=== PATIENT | female | born 1970 | race Caucasian/White ===

== ENCOUNTER 2016-06-15 11:12 | Emergency (ER) | payer MEDICAID, OTHER ==
[~2016-06-15] VITALS: Ht 172.7 cm; Wt 93.0 kg
[~2016-06-15 11:12] MED LIST: PROG1CAP20 PO; VENL75 PO
[2016-06-15 11:34] VITALS: BP 143/94; PULSE 73; RESP 16; TEMP 99.5; O2SAT 98
--- NOTE | 2016-06-15 12:01 | PD ---
HPI Chief Complaint: Eye Problems/Injury Time Seen by Provider: 12:01 Travel History International Travel<30 days: No Contact w/Intl Traveler<30days: No Traveled to known affect area: No History of Present Illness HPI 44-year-old female presents to emergency Department with complaint of right eye pain and swelling since Tuesday morning. Reports her eyelid was swollen on Tuesday morning when she woke up and thought it was maybe a sty. She has tried tea bags to the right eye with no relief and worsening of symptoms. Denies any injury or trauma. No known foreign body. No one else with similar symptoms that she knows of. Has been waking up with her eye crusted shut in the mornings. Took ibuprofen yesterday with minimal relief of pain. Denies fever, chills, nausea, vomiting. Denies change in vision. Does not wear contacts or glasses. Dr. Liz is primary care provider. Allergies to penicillin. Denies significant past medical history. No other modifying factors or associated signs and symptoms. PFSH Past Medical History Asthma: No Atrial Fibrillation: No Anxiety: Yes (PANIC DISORDER ) Depression: Yes COPD: No Cerebrovascular Accident: No Coronary Artery Disease: No Diabetes: No Diminished Hearing: No Headaches: Yes Psychiatric: Yes (panic disorder) Migraines: Yes Myocardial Infarction: No Tetanus Vaccination: > 5 Years Influenza Vaccination: No ?: Not : 2 Para: 3 Tubal Ligation: Yes Past Surgical History Section: Yes (x2) Gynecologic Surgery: Yes Thoracic Surgery: Yes (BREAST AUGMENTATION) Other Surgery: Yes (breast augmentation) Social History Alcohol Use: No Tobacco Use: No Substance Use: No Allergies-Medications (Allergen,Severity, Reaction): Coded Allergies: Penicillin (Verified Allergy, Severe, RASH, 06/15/16) Reported Meds & Prescriptions Reported Meds & Active Scripts Active Ibuprofen 800 Mg Tab 800 Mg PO Q6HR PRN Polytrim Opth Drops (Polymyxin/Trimethoprim Sulfate) 10,000-0.1 Unit/Ml-% Soln 1 -2 Drop RIGHT EYE Q6HR 7 Days Reported Effexor (Venlafaxine HCl) 75 Mg Tab 75 Mg PO HS Review of Systems Except as stated in HPI: all other systems reviewed are Neg Physical Exam Narrative GENERAL: Well-nourished, well-developed female patient, in no acute distress SKIN: Warm and dry. HEAD: Atraumatic. Normocephalic. EYES: Pupils equal and round at 3 mm with brisk reaction. PERRLA. EOMI. visual acuity left 20/20, right 20/20, both 20/15.. Right lid eversion with no foreign body noted. Right eye with scleral erythema and mild lid edema. No orbital tenderness, erythema or cellulitis. Right eye without photophobia. No consensual photophobia. No scleral icterus. Clear drainage. Alfonso lamp exam reveals [-] at the [-] position. ENT: Mucosa pink and moist. Airway patent. NECK: Trachea midline. CARDIOVASCULAR: Regular rate. RESPIRATORY: No accessory muscle use. GASTROINTESTINAL: Rounded. NEUROLOGICAL: Awake and alert. Oriented 3. No obvious cranial nerve deficits. Motor grossly within normal limits. Normal speech. PSYCHIATRIC: Appropriate mood and affect; insight and judgment normal. Data Data Last Documented VS Vital Signs Date Time Temp Pulse Resp B/P Pulse Ox O2 Delivery O2 Flow Rate FiO2 06/15/16 11:56 16 06/15/16 11:34 99.5 73 143/94 98 Orders Proparacaine 0.5% Opth Soln (Alcaine 0.5 (06/15/16 12:15) MDM Medical Decision Making Medical Screen Exam Complete: Yes Emergency Medical Condition: Yes Medical Record Reviewed: Yes Differential Diagnosis Conjunctivitis, corneal abrasion, corneal ulceration, foreign body Narrative Course 45-year-old female with right eye pain, scleral erythema, and mild lid edema. Patient is afebrile denies fever, chills, nausea or vomiting. Visual acuity left 20/20, right 20/20, both 20/15; uncorrected. Patient does not wear contact lenses or glasses. No known eye injury. 1217: Alfonso lamp exam is normal. Suspecting conjunctivitis. Polytrim eyedrops and ibuprofen prescribed for home. Instructed patient to follow-up with ophthalmology as needed. Patient is medically cleared and stable for discharge. Discussed reasons to return to the emergency department. Instructed patient to follow up with primary care provider. Patient agrees with treatment plan. The patients vital signs are stable and the patient is stable for outpatient follow-up and treatment. Patient discharged home, stable and in no acute distress. Diagnosis Primary Impression: Conjunctivitis, right eye Qualified Code: H10.9 - Conjunctivitis of right eye, unspecified conjunctivitis type Referrals: Claim Review Medical Director Primary Care Physician Patient Instructions: Conjunctivitis (ED), General Instructions Additional Instructions: Conjunctivitis is contagious Use antibiotic drops as prescribed Apply warm or cool compresses to both eyes for a few minutes several times daily to minimize irritation Avoid triggers, such as allergens, that may irritate your eyes Wash your hands frequently Do not share washcloths, towels, pillows, or any other material that has touched your eyes with any other household members Follow-up with your primary care provider Follow-up with ophthalmology as needed Return to the emergency department immediately with worsening of symptoms Med/Other Pt SpecificInfo: Prescription(s) given Scripts Ibuprofen 800 Mg [id number] Mg PO Q6HR PRN (PAIN) #30 TAB Ref 0 Prov:Juli Bejarano 06/15/16 Polymyxin B-Trimethoprim Opth Drops (Polytrim Opth Drops)10,000-0.1 Unit/Ml-% Soln1-2 Drop RIGHT EYE Q6HR 7 Days Ref 0 Prov:Juli Bejarano 06/15/16 Disposition: 01 DISCHARGE HOME Condition: Stable Juli Bejarano Jun 15, 2016 12:01
[2016-06-15] MEDS ORDERED: VENL75TA PO (12:02)
[2016-06-15] MEDS ORDERED: PROPARACAINE HCL 0.5% OPHT SOLN 15 ML BTL RIGHT EYE ONE (12:15)
[2016-06-15] MEDS ORDERED: POLY10O RIGHT EYE (12:19)
[2016-06-15] MEDS ORDERED: IBUP800T23 PO (12:19)
== END 2016-06-15 13:02 | disposition home or self-care (01) ==
LOC: PHEFT 11:12
DX: H10.9 Unspecified conjunctivitis (principal); H57.8 Other specified disorders of eye and adnexa; Z86.59 Personal history of other mental and behavioral disorders; Z86.69 Personal history of other diseases of the nervous system and sense organs
CPT/HCPCS: 99283

== ENCOUNTER 2017-06-01 19:12 | Emergency (ER) | payer SELFPAY ==
[~2017-06-01] VITALS: Ht 172.7 cm; Wt 82.0 kg
[~2017-06-01 19:12] MED LIST changes: +IBUP1TAB7 PO; +POLY10O RIGHT EYE; -PROG1CAP20 PO; -VENL75 PO; +VENL75TA PO
[2017-06-01 19:23] VITALS: BP 103/73; PULSE 110; RESP 20; TEMP 102.6; O2SAT 97
[2017-06-01 20:01] VITALS: TEMP 102.5
[2017-06-01] MEDS ORDERED: ACETAMINOPHEN 500 MG CPLT PO ONE (20:15)
[2017-06-01] MEDS ORDERED: guaiFENesin/CODEINE SYRUP 200 MG/20 MG/10 ML CUP PO ONE (20:15)
[2017-06-01] MEDS ORDERED: IBUPROFEN 600 MG TAB PO ONE (20:15)
[2017-06-01] MEDS ORDERED: PSEUDOEPHEDRINE HCL 30 MG TAB PO ONE (20:15)
[2017-06-01 20:16] LABS: BILIRUBIN, URINE NEG (NEG); BLOOD, URINE NEG (NEG); GLUCOSE,URINE NEG (NEG); KETONE, URINE NEG (NEG); NITRITE,URINE NEG (NEG); URINE LEUKOCYTE ESTERASE NEG (NEG)
--- NOTE | 2017-06-01 20:17 | PD ---
HPI Chief Complaint: Cold / Flu Symptoms Time Seen by Provider: 19:33 Travel History International Travel<30 days: No Contact w/Intl Traveler<30days: No Traveled to known affect area: No History of Present Illness HPI Patient is a 46-year-old female who was at work today and developed very sore throat coughing congestion feverish she had severe body aches. Other people aT work The same feverish illness going around she reports. She struck some Tylenol did not relieve her symptoms. She did not see a doctor for this. Her main complaint is feverish body aches and a temperature of 103. She also reports that she had a slight hallucination while her fever was coming on her. She seems to be concerned about the thoughts she had while the fever was elevating. She denies diabetes hypertension denies surgical history. In the ER she does not appear toxic she is alert and oriented 3 and conversant PFSH Past Medical History Asthma: No Atrial Fibrillation: No Anxiety: Yes (PANIC DISORDER ) Depression: Yes COPD: No Cerebrovascular Accident: No Coronary Artery Disease: No Diabetes: No Diminished Hearing: No Headaches: Yes Psychiatric: Yes (panic disorder) Respiratory: Yes (bronchitis) Migraines: Yes Myocardial Infarction: No Pneumonia: Yes (2010) Tetanus Vaccination: > 5 Years Influenza Vaccination: No ?: Not LMP: 10 DAYS AGO : 2 Para: 3 Ovarian Cysts: Yes Tubal Ligation: Yes Past Surgical History Section: Yes (x2) Gynecologic Surgery: Yes Thoracic Surgery: Yes (BREAST AUGMENTATION) Other Surgery: Yes (breast augmentation: 1997) Social History Alcohol Use: No Tobacco Use: No Substance Use: No Allergies-Medications (Allergen,Severity, Reaction): Coded Allergies: penicillin G (Unverified Allergy, Severe, RASH, 06/01/17) Reported Meds & Prescriptions Reported Meds & Active Scripts Active Reported Effexor (Venlafaxine HCl) 75 Mg Tab 75 Mg PO HS Review of Systems Except as stated in HPI: all other systems reviewed are Neg General / Constitutional: Positive: Fever, Chills HENT: Positive: Headaches Respiratory: Positive: Cough, No: Shortness of Breath, Wheezing, Sneezing Gastrointestinal: No: Abdominal Pain Musculoskeletal: Positive: Myalgias Physical Exam Narrative GENERAL: Patient appears mildly flushed cheeks but nontoxic-appearing awake alert oriented 3 SKIN: Warm and dry. HEAD: Atraumatic. Normocephalic. EYES: Pupils equal and round. No scleral icterus. No injection or drainage. ENT: No nasal bleeding or discharge. Mucous membranes pink and moist. NECK: Trachea midline. No JVD. PT has submental nodes are mildly swollen bilaterally CARDIOVASCULAR: Regular rate and rhythm. RESPIRATORY: No accessory muscle use. Clear to auscultation. Breath sounds equal bilaterally. GASTROINTESTINAL: Abdomen soft, non-tender, nondistended. Hepatic and splenic margins not palpable. MUSCULOSKELETAL: Extremities without clubbing, cyanosis, or edema. No obvious deformities. NEUROLOGICAL: Awake and alert. No obvious cranial nerve deficits. Motor grossly within normal limits. Five out of 5 muscle strength in the arms and legs. Normal speech. PSYCHIATRIC: Appropriate mood and affect; insight and judgment normal. Data Data Last Documented VS Vital Signs Date Time Temp Pulse Resp B/P (MAP) Pulse Ox O2 Delivery O2 Flow Rate FiO2 06/01/17 20:01 102.5 06/01/17 19:39 109 18 96 Room Air 06/01/17 19:23 103/73 (83) Orders Orders Group A Rapid Strep Screen (06/01/17 20:01) Influenzae A/B Antigen (06/01/17 20:01) Urinalysis - C+S If Indicated (06/01/17 20:01) Guaifen-Cod 200-20 Mg/10ml Liq (Robituss (06/01/17 20:15) Pseudoephedrine (Sudafed) (06/01/17 20:15) Acetaminophen (Tylenol) (06/01/17 20:15) Strep Culture (Group A) (06/01/17 20:02) Labs Laboratory Tests Test 06/01/17 20:10 Urine Color YELLOW Urine Turbidity CLEAR Urine pH 8.0 Urine Specific [place] 1.020 Urine Protein NEG mg/dL Urine Glucose (UA) NEG mg/dL Urine Ketones NEG mg/dL Urine Occult Blood NEG Urine Nitrite NEG Urine Bilirubin NEG Urine Leukocyte Esterase NEG Urine RBC 0-2 /hpf Urine WBC 0-2 /hpf Urine Squamous Epithelial Cells 0-5 /hpf Urine Bacteria NONE /hpf Microscopic Urinalysis Comment CULT NOT INDICATED MDM Medical Decision Making Medical Screen Exam Complete: Yes Emergency Medical Condition: Yes Differential Diagnosis Viral illness versus pneumonia versus strep pharyngitis versus influenza Narrative Course Flu swab was negative as well as a rapid strep was negative urine is also negative patient has a viral syndrome we'll treat symptomatically discharge with prescriptions to follow-up as an outpatient Diagnosis Primary Impression: Viral illness Patient Instructions: General Instructions, Viral Syndrome (ED) Scripts Ibuprofen (Ibuprofen) 600 Mg Tab 600 MG PO Q6H Y for PAIN, #30 TAB 0 Refills Prov: Ari Last MD 06/01/17 Guaifenesin-Codeine Liq (Guaifenesin AC Liq) 100-10 Mg/5 Ml Syrp 10 ML PO Q4H Y for COUGH, #120 ML 0 Refills Prov: Ari Last MD 06/01/17 Disposition: 01 DISCHARGE HOME Condition: Good Ari Last MD Jun 01, 2017 20:16
[2017-06-01 20:25] LABS: URINE COLOR YELLOW (YELLW/STRAW)
[2017-06-01 20:26] LABS: RBC, URINE 0-2 /hpf (0-3); SQUAMOUS EPITHELIAL CELL URINE 0-5 /hpf (0-5); WBC, URINE 0-2 /hpf (0-5)
[2017-06-01 21:02] VITALS: PULSE 96; TEMP 99.7; O2SAT 96
[2017-06-01] MEDS ORDERED: IBUP-232 PO (21:02)
[2017-06-01] MEDS ORDERED: GUAISYP4 PO (21:02)
== END 2017-06-01 21:08 | disposition home or self-care (01) ==
LOC: PHED 19:12
DX: B34.9 Viral infection, unspecified (principal); F41.0 Panic disorder [episodic paroxysmal anxiety]; F32.9 Major depressive disorder, single episode, unspecified
CPT/HCPCS: 81001; 87081; 87804; 87880; 99283